=== PATIENT | male | born 1935 | race Caucasian/White ===

== ENCOUNTER 2020-03-23 13:17 | Outpatient (RCR) | payer MEDICARE, OTHER, SELFPAY ==
[2015-06-06 07:22] VITALS: BMI 28.8
== END 2020-03-23 23:59 ==
LOC: IMMUN 13:17
PROVIDERS: PCP Internal Medicine; Referring Provider Family Medicine; Visit Provider Family Medicine
DX: Z23 Encounter for immunization (principal)
CPT/HCPCS: 0011A; 0012A

== ENCOUNTER 2020-10-06 23:47 | Emergency (ER) | payer MEDICARE, OTHER, SELFPAY ==
[2020-10-06 23:48] VITALS: BP 153/79; PULSE 84; RESP 16; TEMP 36.9; O2SAT 96; BMI 27.4
--- NOTE | 2020-10-07 00:07 | CT_ITS ---
STUDY: CT ABDOMEN AND PELVIS WITHOUT CONTRAST REASON FOR EXAM: Male, 84 years old. Pain right flank RADIATION DOSAGE (If Supplied By Facility): CTDIvol = ( 8.61 ) mGy, DLP = ( 447.50 ) mGycm TECHNIQUE: Transaxial images were obtained from the dome of the diaphragm to the symphysis pubis without oral contrast, and without intravenous contrast. Sagittal and coronal images were reconstructed. Individualized dose optimization techniques were used for this CT. COMPARISON: None. FINDINGS: The visualized lung bases are unremarkable. The visualized portions of the heart are within normal limits. Normal liver. Normal gallbladder and extrahepatic biliary system. Normal spleen. Normal pancreas. Normal bilateral adrenal glands. Mild bilateral perinephric stranding. There are several low attenuation structures within the right kidney, largest seen within the right mid upper renal pole medially measuring approximately 1.5 cm with [place] units compatible with cysts. Otherwise normal otherwise normal right kidney. Normal left kidney. The stomach is decompressed otherwise unremarkable. No hiatal hernia. Normal small intestine. Unremarkable colon with nonspecific fecal debris. The appendix is visualized and appears normal. There is diffuse atherosclerotic calcification of the abdominal aorta, without a demonstrated aneurysm. Normal inferior vena cava. Normal retroperitoneum. Normal urinary bladder. Significant enlargement of the prostate gland with indentation over the posterior aspect of the urinary bladder wall measuring 6.0 x 7.0 x 6.3 cm. The bilateral fat-containing inguinal hernia of indeterminate clinical significance. There are diffuse degenerative changes of the visualized lumbar spine. Multifactorial, multilevel narrowing of the thecal sac consistent with severe spinal stenosis is slightly throughout the entire lumbar spine from L1 to L4-L5. CT/Abdomen/Pelvis without Cont IMPRESSION: No acute appendicitis or bowel obstruction. Right-sided renal cysts, otherwise normal bilateral kidneys with no hydronephrosis or intrarenal stone. Prostate enlargement. Electronically Signed: Latrice Barakat MD at 1:10 EDT , Service support ,
[2020-10-07 00:08] LABS: Mucous, Urine 0 SEEN /hpf (<or=2+); Squamous Epithelial Cells - UA 0 SEEN /hpf (0-5)
[2020-10-07 00:15] LABS: Color, Urine Red (Yellow); Glucose, Dipstick Normal (Normal); Ketone-Dipstick Negative (Negative); Leukocyte Esterase-Dipstick 25 /ul (Negative); Nitrite-Dipstick Negative (Negative); Occult Blood-Urine 250 /ul (Negative); Protein-Dipstick 100 mg/dl (Negative); Urine Bilirubin Dipstick Negative (Negative); Urine Clarity Clear (Clear); Urine Urobilinogen Normal (Normal); Urine pH 6.5 (5.0 - 8.0)
[2020-10-07 00:28] LABS: Absolute Lymphocyte Count 2.48 X10^3/uL (0.83-4.51); Absolute Neutrophil Count 4.7 X10^3/uL (2.0-7.7); Basophil# 0.04 X10^3/uL; Basophil% 0.5 % (0-1); Eosinophil# 0.26 X10^3/uL; Eosinophils% 3.2 % (0-5); Hematocrit 44.3 % (40-54); Lymphocyte # 2.48 X10^3/ul (0.83-4.51); Lymphocyte % 30.5 % (19-41); Mean Corp Hgb Conc 33.9 g/dL (32-36); Mean Corpuscular Hgb 31.1 pg (27.0-32.0); Mean Corpuscular Volume 91.9 fL (80-94); Mean Platelet Vol. 8.4 fl (6.2-12.0); Monocyte# 0.61 X10^3/uL; Monocyte% 7.5 % (0-10); NRBC Flagged by Analyzer 0 % (0-5); Neutrophil # 4.73 X10^3/uL (2.7-7.7); Neutrophil % 58.1 % (47-70); Platelet Count 315 K/mm3 (150-450); RBC Distribution Width CV 13.2 % (11.6-14.6); RBC Distribution Width SD 44.3 fl (35.1-43.9); Red Blood Count 4.82 M/mm3 (4.6-6.2); White Blood Count 8.1 K/mm3 (4.4-11.0)
[2020-10-07 00:51] LABS: ALB/GLOB Ratio 1.2 RATIO (0.9-2.4); AST(SGOT) 16 U/L (15-37); Alanine Aminotransfer ALT/SGPT 34 U/L (16-61); Albumin, Serum 4.1 g/dL (3.2-5.0); Alkaline Phosphatase 97 U/L (45-117); Anion Gap 6 (5-15); BUN 24 mg/dL (7-18); BUN/Creat Ratio 19.8 RATIO (10-20); Calcium,Total 9.7 mg/dL (8.5-10.1); Chloride 104 mmol/L (98-107); Creatinine, Serum 1.21 mg/dL (0.70-1.30); EST Glomerular Filtration Rate 61 mL/min (>60); Est Glom Filt Rate - Afr Amer 73 mL/min (>60); Estimated Creatinine Clearance 41.01 ml/min; Globulin 3.5 g/dL (2.2-4.2); Glucose 127 mg/dL (74-106); Potassium 4.2 mmol/L (3.5-5.1); Protein, Total 7.6 g/dL (6.4-8.2); Sodium Level 139 mmol/L (136-145)
[2020-10-07 00:59] LABS: Bacteria 3+ /hpf (None Seen); Red Blood Cells-Urine 50-100 SEEN /hpf (0-5); White Blood Cells 5-10 SEEN /hpf (0-5)
--- NOTE | 2020-10-07 01:58 | EX.ED.GUMALE ---
HPI History of Present Illness Chief Complaint: Complaint Informant: patient and spouse/S.O. Related History Enlarged Prostate: Yes Narrative Narrative: Patient is an 84-year-old male with history of BPH, hypertension and diabetes mellitus presenting with hematuria. Patient states that developed today. He notes he has some mild burning after he urinates and increased frequency of urination. Denies any associated testicular pain. He did have a mild intermittent episode of right flank pain but does not currently have any. He is not on any blood thinners or chronic anticoagulation. He does take 81 mg of aspirin daily. No new medications. States he does have a history of urinary retention and did have to have a Sequeira catheter once. Does not currently follow with a urologist but chart review shows he is on Flomax. [facility] Medical History Diabetes HTN (hypertension) Home Medications albuterol sulfate [Ventolin HFA] 1 - 2 puff INHALATION Q4H PRN PRN #1 inhaler 06/06/15 [Rx Last Taken Unknown] aspirin 81 mg PO DAILY@0800 06/06/15 [History Last Taken Unknown] famotidine 20 mg PO BID 06/06/15 [History Last Taken Unknown] latanoprost 1 drp EACH EYE QHS 06/06/15 [History Last Taken Unknown] lisinopril-hydrochlorothiazide [Zestoretic 10/12.5 Tablet] 1 tab PO DAILY 06/06/15 [History Last Taken Unknown] metformin 500 mg PO BIDCM 06/06/15 [History Last Taken Unknown] metoprolol tartrate 100 mg PO DAILY 06/06/15 [History Last Taken Unknown] multivitamin [Daily Multiple Vitamin] 2 ea PO DAILY 06/06/15 [History Last Taken Unknown] simvastatin 20 mg PO QHS 06/06/15 [History Last Taken Unknown] tamsulosin 0.4 mg PO DAILY 06/06/15 [History Last Taken Unknown] wheat dextrin [Benefiber] 1 ea PO DAILY 06/06/15 [History Last Taken Unknown] cephalexin 500 mg PO BID #14 cap 10/07/20 [Rx Last Taken Unknown] Allergy/AdvReac Type Severity Reaction Status Date / Time No Known Allergies Allergy Verified 10/06/20 23:50 Social History Smoking Status: Former smoker ROS ROS ED Constitutional Constitutional ED: Denies chills or fever(s) Eyes Eyes: Denies change in vision ENT ENT ED: Denies rhinorrhea or sore throat Cardiovascular Cardiovascular: Denies chest pain or palpitations Respiratory/Chest Respiratory/Chest: Denies cough or dyspnea Gastrointestinal Gastrointestinal: Reports abdominal pain; Denies diarrhea, nausea or vomiting Genitourinary Genitourinary ED: Reports dysuria, hematuria and urinary frequency Musculoskeletal Musculoskeletal: Denies arthralgias or myalgias Integumentary Denies rash Neurologic Neurologic: Denies headache(s) or weakness EXAM Physical Exam Const Vital Signs: 10/06/20 23:48 10/07/20 02:48 Temperature 98.4 F Temperature Source Temporal Pulse Rate 84 Respiratory Rate 16 18 Blood Pressure 153/79 H Blood Pressure Mean 103 Pulse Ox 96 Oxygen Delivery Method Room Air Positive well nourished and well developed General Appearance ED: well developed; Negative for pallor HEENT normocephalic and atraumatic Eyes PERRL and EOMs intact bilaterally General Eye ED: Negative for pale conjunctiva Neck supple and no JVD Resp normal respiratory effort and clear to auscultation bilaterally Cardio regular rate, regular rhythm and no murmurs GI non-tender and non-distended Auscultation: normoactive bowel sounds Palpation: soft Back/Spine no CVA tenderness Lumbar Spine / Lower Back: Negative for lumbar spinal tenderness Extremity normal to inspection Neuro oriented x3, moves all extremities and no focal motor deficits Sensorium / Orientation: alert Motor Exam: Negative for general weakness Psych mental status grossly normal Skin General Skin Exam: Negative for pallor Lesions: no lesions Rashes: no rashes MDM MDM MDM Narrative Medical decision making narrative: Patient evaluated for hematuria. He appears nontoxic in no acute distress. He does use the restroom multiple times in the emergency room. Postvoid bladder ultrasound shows about 200 mL of urine. Urinalysis shows blood as well as white blood cells and 3+ bacteria. I am concerned patient has urinary retention that likely predispose him to UTI and now has hematuria. His creatinine is 1.21 which appears to be his baseline from 2016. His white blood cell count, hemoglobin and platelets are normal. CT of the abdomen and pelvis obtained as he did have episode of right flank pain to make sure is not a kidney stone. Patient significant prostate enlargement and a right renal cyst but no finding of hydronephrosis. patient started on Keflex and given referral to follow-up with urology with Dr. Christina. He is given counseling on how to use to maintain an indwelling Sequeira catheter. Patient and are agreeable with this plan of care. Patient is over 400 cc of urine after Sequeira catheter placement. Lab Data Attestation: I reviewed the patient's lab results. Labs: Laboratory Results - last 24 hr 10/06/20 10/07/20 10/07/20 23:55 00:10 00:10 WBC 8.1 RBC 4.82 Hgb 15.0 Hct 44.3 MCV 91.9 MCH 31.1 MCHC 33.9 RDW Std Deviation 44.3 H RDW Coeff of Anaya 13.2 Plt Count 315 MPV 8.4 Immature Gran % (Auto) 0.200 Neut % (Auto) 58.1 Lymph % (Auto) 30.5 [place] % (Auto) 7.5 Eos % (Auto) 3.2 Baso % (Auto) 0.5 Absolute Neuts (auto) 4.7 Absolute Lymphs (auto) 2.48 Nucleated RBC % 0 Sodium 139 Potassium 4.2 Chloride 104 Carbon Dioxide 29.0 Anion Gap 6 BUN 24 H Creatinine 1.21 Estim Creat Clear Calc 41.01 Est GFR (MDRD) Af Amer 73 Est GFR (MDRD) Non-Af 61 BUN/Creatinine Ratio 19.8 Glucose 127 H Calcium 9.7 Total Bilirubin 0.70 AST 16 ALT 34 Alkaline Phosphatase 97 Total Protein 7.6 Albumin 4.1 Globulin 3.5 Albumin/Globulin Ratio 1.2 Urine Color Red Urine Clarity Clear Urine pH 6.5 Ur Specific [place] 1.010 Urine Protein 100 H Urine Glucose (UA) Normal Urine Ketones Negative Urine Occult Blood 250 H Urine Nitrite Negative Urine Bilirubin Negative Urine Urobilinogen Normal Ur Leukocyte Esterase 25 H Urine RBC 50-100 SEEN Urine WBC 5-10 SEEN Ur Squamous Epith Cells 0 SEEN Urine Bacteria 3+ Urine Mucus 0 SEEN Radiography Diagnostic Testing: Radiology Impression Abdomen/Pelvis CT 10/07/20 00:07 IMPRESSION: No acute appendicitis or bowel obstruction. Right-sided renal cysts, otherwise normal bilateral kidneys with no hydronephrosis or intrarenal stone. Prostate enlargement. Electronically Signed: Latrice Barakat MD at 1:10 EDT , Service support , Discharge Plan Triage Chief Complaint: Complaint ED Provider: Elise Love Dx/Rx/DC Orders Clinical Impression: Acute UTI, Hematuria, Acute urinary retention Instructions: ED Sequeira Catheter, Care, ED Hematuria, ED Urinary Retention, Male, ED Urinary Tract Infections in Men Prescriptions: New cephalexin 500 mg capsule 500 mg PO BID Qty: 14 RF: 0 No Action multivitamin [Daily Multiple] 1 EACH tablet 2 ea PO DAILY RF: 0 latanoprost 1 DROP bottle 1 drp Each Eye QHS RF: 0 metformin 500 MG tablet 500 mg PO BIDCM RF: 0 metoprolol tartrate 100 MG tablet 100 mg PO DAILY RF: 0 famotidine 20 MG tablet 20 mg PO BID RF: 0 tamsulosin 0.4 MG capsule 0.4 mg PO DAILY RF: 0 simvastatin 20 MG tablet 20 mg PO QHS RF: 0 aspirin 81 MG tablet,chewable 81 mg PO DAILY@0800 RF: 0 lisinopril-hydrochlorothiazide [Zestoretic] 1 TABLET tablet 1 tab PO DAILY RF: 0 wheat dextrin [Benefiber Clear SF (dextrin)] 1 EACH powder in packet 1 ea PO DAILY RF: 0 albuterol sulfate [Ventolin HFA] 1 INHALER inhaler 1 - 2 puff inhalation Q4H PRN PRN (Reason: Wheezing) Qty: 1 RF: 0 Primary Care Provider: Hiram Rand Referrals: Frantz Christina MD [STAFF PHYSICIAN] - 3-5 Days (for sequeira catheter check and removal ) Hiram Rand MD [Primary Care Provider] - Disposition Disposition: Home, Self Care Discharge Date/Time: 10/07/20 02:48
[2020-10-07] MEDS: Cephalexin 250 MG Capsule 500 MG PO (02:10)
[2020-10-07 02:48] VITALS: RESP 18
== END 2020-10-07 02:48 | disposition home or self-care (01) ==
PROVIDERS: Emergency Provider Emergency Medicine; PCP Internal Medicine
DX: N40.1 Benign prostatic hyperplasia with lower urinary tract symptoms (principal); N39.0 Urinary tract infection, site not specified; R31.9 Hematuria, unspecified; E11.9 Type 2 diabetes mellitus without complications; I10 Essential (primary) hypertension; Z79.84 Long term (current) use of oral hypoglycemic drugs; Z79.899 Other long term (current) drug therapy; Z87.891 Personal history of nicotine dependence
CPT/HCPCS: 51702; 74176; 80053; 81001; 85025; 87086; 87088; 99284; A4216

== ENCOUNTER → 2022-05-26 | Outpatient (CLI) | payer MEDICARE, OTHER, SELFPAY ==
[2022-05-26 15:51] LABS: PSA,Total- Diagnostic 4.57 ng/mL (0.0-4.0)
== END | disposition home or self-care (01) ==
LOC: LAB 14:37
PROVIDERS: PCP Internal Medicine; Referring Provider Urology; Visit Provider Urology
DX: N40.1 Benign prostatic hyperplasia with lower urinary tract symptoms (principal)
CPT/HCPCS: 36415; 84153

== ENCOUNTER 2022-07-17 12:17 | Emergency (ER) | payer MEDICARE, OTHER, SELFPAY ==
[2022-07-17] VITALS (7 sets, daily range): BP systolic 118–135; BP diastolic 59–75; PULSE 62–80; RESP 18–21; TEMP 36.2; O2SAT 94–100; BMI 28.1
--- NOTE | 2022-07-17 12:49 | EKG12_ITS ---
Test Reason : CP Blood Pressure : / mmHG Vent. Rate : 065 BPM Atrial Rate : 065 BPM P-R Int : 154 ms QRS Dur : 128 ms QT Int : 432 ms P-R-T Axes : 059 087 017 degrees QTc Int : 449 ms Normal sinus rhythm with sinus arrhythmia Right bundle branch block Abnormal ECG Confirmed by CAREY CASTELLON, RENAN ([id number]), editor producer CAIO FUNEZ ([id number]) on 07/18/2022 8:10:53 AM Referred By: BB Confirmed By:RENAN PATINO MD
--- NOTE | 2022-07-17 12:50 | RAD_ITS ---
STUDY: X-RAY CHEST REASON FOR EXAM: Male, 86 years old. Chest pain. TECHNIQUE: PA and lateral views of the chest. COMPARISON: Comparison is made with prior study June 06, 2015. FINDINGS: EKG electrodes are seen. Hyperinflation. The lungs are clear. There is no demonstrated pleural abnormality. Normal size heart. Normal mediastinum and sunshine. Normal visualized pulmonary arteries. There is atherosclerotic calcification of the aortic arch with tortuosity. There are diffuse degenerative changes of the visualized thoracic spine. Normal visualized ribs, clavicles, and shoulders. There is no demonstrated abnormality of the visualized soft tissue structures of the upper abdomen. RAD/Chest PA and Lateral IMPRESSION: Hyperinflation. The lungs are clear. Electronically Signed: Roge Núñez MD at 13:42 EDT ,
--- NOTE | 2022-07-17 12:50 | ED.VIS.CHEST ---
HPI History of Present Illness Chief Complaint: Chest Pain Informant: patient Narrative Narrative: Patient presents around noon for pain in his left chest near his axilla and around the shoulder blade that started around midnight; he states he went to bed last night without any symptoms and he woke up around midnight to use the bathroom, he went to the bathroom without any issues or event, and as he was getting back into bed he noticed this discomfort. He went back to sleep he woke up it was still there and has had it all morning so he presents because this is unusual for him. No history of heart problems. Denies any associated dyspnea, palpitations, near-syncope/syncope, nausea, vomiting, or pleuritic discomfort. No radiating jaw, arm, neck pain. He ate a sandwich this morning and took 2 baby aspirin without any significant changes in his discomfort. Does not seem exertional. [facility] Medical History Diabetes HTN (hypertension) Home Medications albuterol sulfate 90 mcg/actuation aerosol inhaler (Ventolin HFA) 1 - 2 puff inhalation Q4H PRN PRN Wheezing ##1 06/06/15 [Rx Last Taken Unknown] aspirin 81 mg chewable tablet 81 mg PO DAILY@0800 06/06/15 [History Last Taken Unknown] famotidine 20 mg tablet 20 mg PO BID 06/06/15 [History Last Taken Unknown] latanoprost 0.005 % eye drops 1 drp QHS 06/06/15 [History Last Taken Unknown] lisinopril 10 mg-hydrochlorothiazide 12.5 mg tablet (Zestoretic) 1 tab PO DAILY 06/06/15 [History Last Taken Unknown] metformin 500 mg tablet 500 mg PO BIDCM 06/06/15 [History Last Taken Unknown] metoprolol tartrate 100 mg tablet 100 mg PO DAILY 06/06/15 [History Last Taken Unknown] multivitamin (Daily Multiple tablet) 2 ea PO DAILY 06/06/15 [History Last Taken Unknown] simvastatin 20 mg tablet 20 mg PO QHS 06/06/15 [History Last Taken Unknown] tamsulosin 0.4 mg capsule 0.4 mg PO DAILY 06/06/15 [History Last Taken Unknown] wheat dextrin 3 gram/3.5 gram oral powder packet (Benefiber Clear Sugar Free(dextrin)) 1 ea PO DAILY 06/06/15 [History Last Taken Unknown] cephalexin 500 mg capsule 500 mg PO BID #14 caps 10/07/20 [Rx Last Taken Unknown] Allergy/AdvReac Type Severity Reaction Status Date / Time No Known Allergies Allergy Verified 10/06/20 23:50 Social History (Updated 07/17/22 @ 13:00 by Nadine Hector) household members: spouse Smoking Status: Former smoker ROS ROS ED Constitutional Constitutional ED: Denies chills or fever(s) Eyes Eyes: Denies change in vision or diplopia ENT ENT ED: Denies rhinorrhea or sore throat Cardiovascular Cardiovascular: Reports chest pain; Denies leg edema, palpitations or radiating jaw, neck or arm pain Respiratory/Chest Respiratory/Chest: Denies cough or dyspnea Gastrointestinal Gastrointestinal: Denies abdominal pain, diarrhea, nausea or vomiting Genitourinary Genitourinary ED: Denies dysuria or hematuria Musculoskeletal Musculoskeletal: Reports back pain; Denies neck pain Integumentary Denies abscess or rash Neurologic Neurologic: Denies headache(s), paresthesias or weakness Psychiatric Psychiatric: Denies anxiety or suicidal thoughts EXAM Physical Exam Const Vital Signs: 07/17/22 12:17 07/17/22 12:56 07/17/22 12:56 Temperature 97.1 F L Temperature Source Temporal Pulse Rate 70 64 Respiratory Rate 18 21 H Respiratory Effort Normal Blood Pressure 135/75 H 121/73 H Blood Pressure Mean 95 89 Pulse Ox 100 Oxygen Delivery Method Room Air 07/17/22 13:02 07/17/22 13:17 07/17/22 14:00 Temperature Temperature Source Pulse Rate 62 63 Respiratory Rate 18 18 Respiratory Effort Blood Pressure 119/65 118/59 L Blood Pressure Mean 83 78 Pulse Ox 94 Oxygen Delivery Method Room Air 07/17/22 15:07 Temperature Temperature Source Pulse Rate 80 Respiratory Rate Respiratory Effort Blood Pressure 121/74 H Blood Pressure Mean 89 Pulse Ox Oxygen Delivery Method Positive well nourished and well developed General Appearance ED: well developed and NAD HEENT Reports moist mucous membranes normocephalic and atraumatic Eyes PERRL and EOMs intact bilaterally Neck full ROM and supple Chest Wall inspection of chest normal and palpation of chest normal Resp normal respiratory effort and clear to auscultation bilaterally Cardio regular rate, regular rhythm and no murmurs Rate: Negative for tachycardic GI non-tender and non-distended Auscultation: normoactive bowel sounds Palpation: soft Back/Spine no CVA tenderness General Back: other FROM Extremity normal to inspection General Extremety ED: Negative for edema, pulses abnormal or tenderness General Extremity: Negative for edema or pulses abnormal Neuro oriented x3, CN's II-XII intact bilaterally and no sensory deficits noted Sensorium / Orientation: awake and alert Motor Exam: strength 5/5 throughout Psych mental status grossly normal Skin no rashes or lesions noted and no wounds Heart Score History: Slightly/Non-Suspicious ECG: Nonspecific Repolarization Age: >/= 65 years Risk Factors: 1 or 2 Risk Factors Score: 4 MDM MDM MDM Narrative Medical decision making narrative: At the end of my evaluation, patient states that when I do this, it hurts more. He shows me that he is moving his chest/left shoulder in a certain way. The chest x-ray interested the cardiac work-up is all unremarkable, he has been having symptoms for longer than 8 hours with a troponin of 5, and an EKG showing a right bundle branch block that is unchanged compared with his old 1, essentially ruling out acute coronary syndrome at this time. He is comfortable and had no telemetry events and his vital signs are normal. On reexamination to discuss the test results with him, he and his state that they did some more discussing, and they remembered that yesterday he was carrying the battery-powered weedeater around his yard all day, then he lifted up a lot of objects, including a bunch of cardboard that he then took to a dumpster lifting the heavy lid, and trying to balance it while he pushed the cardboard into it. He is not used to doing these things, and he suspects maybe this is related to his pain, and I agree. Reassured and discharged home, we discussed reasons to follow-up and return. He is comfortable with that plan. Lab Data Attestation: I reviewed the patient's lab results. Labs: Laboratory Results - last 24 hr 07/17/22 07/17/22 12:30 12:30 WBC 6.2 RBC 4.96 Hgb 15.5 Hct 45.6 MCV 91.9 MCH 31.3 MCHC 34.0 RDW Std Deviation 45.3 H RDW Coeff of Anaya 13.5 Plt Count 254 MPV 8.8 Immature Gran % (Auto) 0.200 Neut % (Auto) 58.0 Lymph % (Auto) 31.3 [place] % (Auto) 5.8 Eos % (Auto) 4.2 Baso % (Auto) 0.5 Absolute Neuts (auto) 3.6 Absolute Lymphs (auto) 1.94 Nucleated RBC % 0 Sodium 139 Potassium 3.9 Chloride 105 Carbon Dioxide 28.0 Anion Gap 6 BUN 17 Creatinine 1.08 Estim Creat Clear Calc 44.31 Est GFR (MDRD) Af Amer 83 Est GFR (MDRD) Non-Af 69 BUN/Creatinine Ratio 15.7 Glucose 175 H Calcium 9.7 Troponin I High Sens 5 Radiography Chest X-Ray - ED: 2 View, Read by ED Physician, No Acute Disease and Chronic Changes Diagnostic Testing: Clinical Impression(s) from Imaging Studies Chest X-Ray 07/17/22 12:50 IMPRESSION: Hyperinflation. The lungs are clear. Electronically Signed: Roge Núñez MD at 13:42 EDT , Rhythm Strip Rhythm Strip: Sinus Rhythm Rate: 65 Ectopy: None EKG Initial EKG: Attestation: I personally reviewed and interpreted this EKG as follows: Interpretation: Sinus Rhythm, No Acute Injury Pattern and RBBB Prior EKG tracings: available for review Prior: Unchanged Discharge Plan Triage Chief Complaint: Chest Pain ED Provider: Curtis Saucedo Dx/Rx/DC Orders Clinical Impression: Left-sided chest wall pain Instructions: ED Chest Pain, Noncardiac Prescriptions: No Action multivitamin [Daily Multiple] 1 EACH tablet 2 ea PO DAILY latanoprost 1 DROP bottle 1 drp Each Eye QHS metformin 500 MG tablet 500 mg PO BIDCM metoprolol tartrate 100 MG tablet 100 mg PO DAILY famotidine 20 MG tablet 20 mg PO BID tamsulosin 0.4 MG capsule 0.4 mg PO DAILY simvastatin 20 MG tablet 20 mg PO QHS aspirin 81 MG tablet,chewable 81 mg PO DAILY@0800 lisinopril-hydrochlorothiazide [Zestoretic] 1 TABLET tablet 1 tab PO DAILY wheat dextrin [Benefiber Clear SF (dextrin)] 1 EACH powder in packet 1 ea PO DAILY albuterol sulfate [Ventolin HFA] 1 INHALER inhaler 1 - 2 puff inhalation Q4H PRN PRN (Reason: Wheezing) Qty: 1 0RF cephalexin 500 mg capsule 500 mg PO BID Qty: 14 0RF Primary Care Provider: Hiram Rand Referrals: Hiram Rand MD [Primary Care Provider] - 1 Week if not improving Disposition Disposition: Home, Self Care
[2022-07-17 13:13] LABS: Absolute Lymphocyte Count 1.94 X10^3/uL (0.83-4.51); Absolute Neutrophil Count 3.6 X10^3/uL (2.0-7.7); Basophil# 0.03 X10^3/uL; Basophil% 0.5 % (0-1); Eosinophil# 0.26 X10^3/uL; Eosinophils% 4.2 % (0-5); Hematocrit 45.6 % (40-54); Hemoglobin 15.5 g/dL (13.0-16.5); Lymphocyte # 1.94 X10^3/ul (0.83-4.51); Lymphocyte % 31.3 % (19-41); Mean Corpuscular Hgb 31.3 pg (27.0-32.0); Mean Corpuscular Volume 91.9 fL (80-94); Mean Platelet Vol. 8.8 fl (6.2-12.0); Monocyte# 0.36 X10^3/uL; Monocyte% 5.8 % (0-10); NRBC Flagged by Analyzer 0 % (0-5); Platelet Count 254 K/mm3 (150-450); RBC Distribution Width CV 13.5 % (11.6-14.6); RBC Distribution Width SD 45.3 fl (35.1-43.9); Red Blood Count 4.96 M/mm3 (4.6-6.2); White Blood Count 6.2 K/mm3 (4.4-11.0)
[2022-07-17 13:31] LABS: Anion Gap 6 (5-15); BUN 17 mg/dL (7-18); BUN/Creat Ratio 15.7 RATIO (10-20); Calcium,Total 9.7 mg/dL (8.5-10.1); Chloride 105 mmol/L (98-107); Creatinine, Serum 1.08 mg/dL (0.70-1.30); EST Glomerular Filtration Rate 69 mL/min (>60); Est Glom Filt Rate - Afr Amer 83 mL/min (>60); Estimated Creatinine Clearance 44.31 ml/min; Glucose 175 mg/dL (74-106); Potassium 3.9 mmol/L (3.5-5.1); Sodium Level 139 mmol/L (136-145); Troponin-I HS 5 pg/mL (3.0-78.0)
== END 2022-07-17 15:34 | disposition home or self-care (01) ==
PROVIDERS: Emergency Provider Emergency Medicine; PCP Internal Medicine; Visit Provider Emergency Medicine
DX: R07.89 Other chest pain (principal); E11.9 Type 2 diabetes mellitus without complications; I45.10 Unspecified right bundle-branch block; I10 Essential (primary) hypertension; Z87.891 Personal history of nicotine dependence
CPT/HCPCS: 71046; 80048; 84484; 85025; 93005; 99284; A4216

== ENCOUNTER 2024-02-17 09:32 | Emergency (ER) | payer MEDICARE, OTHER, SELFPAY ==
[2024-02-17 09:33] VITALS: BP 153/75; PULSE 82; RESP 20; TEMP 36.7; O2SAT 97; BMI 29.8
--- NOTE | 2024-02-17 09:40 | EKG12_ITS ---
Test Reason : Blood Pressure : */* mmHG Vent. Rate : 69 BPM Atrial Rate : 69 BPM P-R Int : 162 ms QRS Dur : 126 ms QT Int : 430 ms P-R-T Axes : 60 90 8 degrees QTcB Int : 460 ms Normal sinus rhythm Right bundle branch block Abnormal ECG Confirmed by Mack Rasmussen ([id number]), editorial specialist CAIO FUNEZ ([id number]) on 02/18/2024 10:17:38 AM Referred By: SIMON Confirmed By: Mack Rasmussen
--- NOTE | 2024-02-17 09:40 | RAD_ITS ---
HISTORY: chest pain. TECHNIQUE: XR Chest 1 View. COMPARISON: 07/17/2022. FINDINGS: CARDIOMEDIASTINAL BORDERS: Cardiac silhouette upper limits of normal in size. Mediastinal contour unremarkable with calcification of the aortic knob. LUNGS: Small scar or nodule in the left midlung again seen. Mild linear left basilar opacity. PLEURA: No pleural effusion or pneumothorax seen. OSSEOUS STRUCTURES: Degenerative change. RAD/Chest 1 View (Portable) IMPRESSION: Mild left basilar opacity, likely atelectasis. Stable small scar or nodule in the left midlung. Electronically Signed: Anita Jarquin MD at 10:05 EST ,
--- NOTE | 2024-02-17 09:56 | EDS_ITS ---
HPI History of Present Illness Chief Complaint: Chest Pain Informant: patient Onset/Context/Timing Onset: Today Timing: Continuous Quality: Positive for Dull Location: Substernal Current Severity: Mild Maximum Severity: Mild Worsened By: Nothing Relieved By: Nothing Associated Symptoms: Negative for Nausea, Vomiting, Diaphoresis, Dyspnea, Cough, Fever, Lightheadedness, Acid Reflux or Palpitations Narrative Narrative: 88-year-old male history of diabetes states he awoke this morning around 6 AM with chest discomfort. Initially is left-sided now is more midsternal. Denies any radiation to his neck back or jaw. No radiation to his arm. No prior history of chest pain or cardiac disease. Said he did have a heart cath less than 10 years ago he believes at the [facility] incident was okay. He denies any recent exertional chest pain or exertional shortness of breath. No history of DVT or PE or risk factors. No leg pain or swelling. No hemoptysis. Says he actually shoveled snow on his steps the other day and then used his plow to pile the rest of his driveway. He denies any recent cough or fever. No leg pain or swelling. Prior Similar Symptoms: No, With Prior IL, With Prior Angina and With Prior PE Recent Illness/Hospitalization: No CVD Risk Factors: Positive for Diabetes PE Risk Factors: Negative for Recent Travel/Surgery, Recent Immobilization, Prior DVT or PE, Cancer or OCP + Smoking + >/=35 TAD Risk Factors: Negative for Marfan's Syndrome [facility] Medical History Diabetes HTN (hypertension) Home Medications ?Medication ?Instructions ?Recorded ?Last Taken ?Type albuterol sulfate 90 mcg/actuation 1 - 2 puff inhalation Q4H PRN PRN 06/06/15 Unknown Rx aerosol inhaler (Ventolin HFA) Wheezing ##1 aspirin 81 mg chewable tablet 81 mg PO DAILY@0800 06/06/15 Unknown History famotidine 20 mg tablet 20 mg PO BID 06/06/15 Unknown History latanoprost 0.005 % eye drops 1 drp QHS 06/06/15 Unknown History lisinopril 10 1 tab PO DAILY 06/06/15 Unknown History mg-hydrochlorothiazide 12.5 mg tablet (Zestoretic) metformin 500 mg tablet 500 mg PO BIDCM 06/06/15 Unknown History metoprolol tartrate 100 mg tablet 100 mg PO DAILY 06/06/15 Unknown History multivitamin (Daily Multiple 2 ea PO DAILY 06/06/15 Unknown History tablet) simvastatin 20 mg tablet 20 mg PO QHS 06/06/15 Unknown History tamsulosin 0.4 mg capsule 0.4 mg PO DAILY 06/06/15 Unknown History wheat dextrin 3 gram/3.5 gram oral 1 ea PO DAILY 06/06/15 Unknown History powder packet (Benefiber Clear Sugar Free(dextrin)) cephalexin 500 mg capsule 500 mg PO BID #14 caps 10/07/20 Unknown Rx Allergy/AdvReac Type Severity Reaction Status Date / Time No Known Allergies Allergy Verified 02/17/24 09:33 Social History household members: spouse Smoking Status: Former smoker ROS ROS ED ROS Narrative Denies recent illness. Constitutional Constitutional ED: Denies chills or fever(s) Eyes Eyes: Reports none ENT ENT ED: Denies ear pain Cardiovascular Cardiovascular: Reports chest pain Respiratory/Chest Respiratory/Chest: Denies cough or dyspnea Gastrointestinal Gastrointestinal: Denies abdominal pain Genitourinary Genitourinary ED: Denies dysuria or hematuria Musculoskeletal Musculoskeletal: Denies arthralgias or back pain Integumentary Denies abscess or Abrasions Neurologic Neurologic: Denies headache(s) Psychiatric Psychiatric: Denies anxiety or depression Endocrine Endocrinology: Denies cold intolerance Hematologic/Lymphatic Hematologic/Lymphatic: Denies easy bleeding Allergic/Immunologic Allergic/Immunologic ED: Denies mouth swelling EXAM Physical Exam Narrative Exam Narrative: Well-appearing 88-year-old male. Vital signs are stable afebrile. Pulse ox 97% on room air no signs of hypoxia. H EENT exam unremarkable. Pupils round reactive light. M moist mucous membranes. Neck nontender no JVD. Lungs clear to auscultation bilaterally. Heart regular rate and rhythm rate about 80 no murmur. Chest wall and ribs there is no reproducible pain. No crepitance or subcu air. Abdomen soft and nontender. Back nontender. Moving all 4 extremities. 5 out of 5 fig caprifier strength. Dorsi plantarflexion intact. Equal symmetrical radial pulses. Calves are nontender without edema or cords. Back is nontender. Neurologically is awake and alert. Answering questions following commands. No focal motor deficits. Const Vital Signs: 02/17/24 09:33 02/17/24 09:33 02/17/24 09:40 Temperature 98.1 F Temperature Source Oral Pulse Rate 82 Respiratory Rate 20 H Respiratory Effort Normal Non-Labored Blood Pressure 153/75 H Blood Pressure Mean 101 Pulse Ox 97 Oxygen Delivery Method Room Air Room Air 02/17/24 10:33 02/17/24 11:00 02/17/24 12:00 Temperature Temperature Source Pulse Rate 74 72 68 Respiratory Rate 19 H 22 H 18 Respiratory Effort Blood Pressure 136/71 H 120/69 123/99 H Blood Pressure Mean 92 86 107 Pulse Ox 97 96 99 Oxygen Delivery Method Room Air Room Air 02/17/24 13:00 Temperature Temperature Source Pulse Rate 71 Respiratory Rate 18 Respiratory Effort Blood Pressure 126/84 H Blood Pressure Mean 98 Pulse Ox 96 Oxygen Delivery Method Room Air Positive well nourished and well developed; Negative for cachectic, contractures or unkempt General Appearance ED: well developed and NAD; Negative for unkempt, cachectic, contractures or pallor Nutritional Appearance: Negative for cachectic HEENT Reports moist mucous membranes normocephalic and atraumatic; Negative for trauma or tenderness Eyes PERRL and EOMs intact bilaterally General Eye ED: Negative for pale conjunctiva or scleral icterus Neck no lymphadenopathy, supple and no JVD Chest Wall inspection of chest normal and palpation of chest normal Chest: Negative for tenderness Resp normal respiratory effort and clear to auscultation bilaterally Effort and Inspection: Negative for respiratory distress Auscultation: Negative for rales, rhonchi, wheezes or diminished lung sounds Cardio regular rate, regular rhythm, S1 normal heart sound, S2 normal heart sound and no murmurs Peripheral Pulses: pulses 2+ throughout GI normal to inspection, nondistended, normoactive bowel sounds, soft to palpation, non-tender, non-distended and no masses Back/Spine no CVA tenderness and no thoracic nor lumbar tenderness General Back: Negative for CVA tenderness Cervical Spine: Negative for cervical spine tenderness Extremity normal to inspection General Extremety ED: Negative for edema, pulses abnormal or tenderness General Extremity: Negative for edema or pulses abnormal Neuro oriented x3 and CN's II-XII intact bilaterally Sensorium / Orientation: awake, alert, oriented to person and oriented to place; Negative for confused or lethargic Motor Exam: strength 5/5 throughout Psych mental status grossly normal Appearance: Negative for unkempt Mood & Affect: Negative for depressed, anxious or tearful Skin no rashes or lesions noted and no wounds General Skin Exam: Negative for jaundice or pallor Rashes: No rashes noted Trauma: Negative for abrasion or laceration Heart Score History: Moderately Suspicious ECG: Normal Age: >/= 65 years Risk Factors: 1 or 2 Risk Factors Score: 4 MDM MDM MDM Narrative Medical decision making narrative: 88-year-old male with nonexertional chest pain this morning. Currently is not reproducible. No cardiac history. But given his age, diabetes etc. he does have risk factors. Undergo a cardiac workup. Repeat exam patient is doing well at 1:38 PM. Symptoms have resolved. He is having no chest pain. Went over his test results. Given has not had recent exertional chest pain or exertional dyspnea. And he has had 2 troponins that are both negative. He had our card with him being discharged home with outpatient follow-up. Primary care physicians on page for outpatient follow. History & Record Review Discussion w/independent historian: Patient Additional record(s) reviewed:: Prior inpatient record, Prior outpatient record, Prior ED visit and Prior labs Lab Data Attestation: I reviewed the patient's lab results. Lab results narrative: CBC white count 12.3. H&H 14 and 40. Platelets 219. Electrolytes show a gap of 6. BUN of 20 creatinine of 1. Glucose 131. Initial troponin 5. 2-hour troponin less than 3. Chest x-ray chronic changes. Labs: Laboratory Results - last 24 hr 02/17/24 02/17/24 09:37 11:53 WBC 12.3 H RBC 4.62 Hgb 14.3 Hct 40.9 MCV 88.5 MCH 31.0 MCHC 35.0 RDW Std Deviation 43.8 RDW Coeff of Anaya 13.5 Plt Count 219 MPV 8.4 Immature Gran % (Auto) 0.300 Neut % (Auto) 82.0 H Lymph % (Auto) 10.0 L Marion % (Auto) 5.9 Eos % (Auto) 1.5 Baso % (Auto) 0.3 Absolute Neuts (auto) 10.0 H Absolute Lymphs (auto) 1.23 Nucleated RBC % 0 Sodium 139 Potassium 3.8 Chloride 102 Carbon Dioxide 31.0 Anion Gap 6 BUN 20 H Creatinine 1.06 Estim Creat Clear Calc 49.06 Est GFR (MDRD) Af Amer 85 Est GFR (MDRD) Non-Af 70 BUN/Creatinine Ratio 18.9 Glucose 131 H Calcium 9.7 Troponin I High Sens 5 < 3 L Radiography Chest X-Ray - ED: 1 View, Read by ED Physician, Normal, Heart, Lungs, Mediastinum, Bony Structures, No Acute Disease and Chronic Changes Diagnostic Testing: Clinical Impression(s) from Imaging Studies Chest X-Ray 02/17/24 09:40 IMPRESSION: Mild left basilar opacity, likely atelectasis. Stable small scar or nodule in the left midlung. Electronically Signed: Anita Jarquin MD at 10:05 EST Reading Location ID and State: [facility] / [place] Tel , Service support , Chest x-ray, portable, single view, interpreted by myself shows normal cardiac silhouette. Normal mediastinum. Normal lung desouza. Chronic changes. No acute process. No pneumonia. No pneumothorax. No effusion. Rhythm Strip Rhythm Strip: Sinus Rhythm Rate: 69 Ectopy: None EKG Initial EKG: Attestation: I personally reviewed and interpreted this EKG as follows: Interpretation: Sinus Rhythm and No Acute Injury Pattern Comments: Normal sinus rhythm rate of 69 no acute signs of IL or ischemia. Right bundle branch block. Discharge Plan Triage Chief Complaint: Chest Pain ED Provider: Maynor Urias Dx/Rx/DC Orders Clinical Impression: Chest pain, History of diabetes mellitus Instructions: ED Chest Pain, Uncertain Cause Prescriptions: No Action multivitamin [Daily Multiple] 1 EACH tablet 2 ea PO DAILY latanoprost 1 DROP bottle 1 drp Each Eye QHS metformin 500 MG tablet 500 mg PO BIDCM metoprolol tartrate 100 MG tablet 100 mg PO DAILY famotidine 20 MG tablet 20 mg PO BID tamsulosin 0.4 MG capsule 0.4 mg PO DAILY simvastatin 20 MG tablet 20 mg PO QHS aspirin 81 MG tablet,chewable 81 mg PO DAILY@0800 lisinopril-hydrochlorothiazide [Zestoretic] 1 TABLET tablet 1 tab PO DAILY wheat dextrin [Benefiber Clear SF (dextrin)] 1 EACH powder in packet 1 ea PO DAILY albuterol sulfate [Ventolin HFA] 1 INHALER inhaler 1 - 2 puff inhalation Q4H PRN PRN (Reason: Wheezing) Qty: 1 0RF cephalexin 500 mg capsule 500 mg PO BID Qty: 14 0RF Primary Care Provider: Hiram Rand Referrals: Hiram Rand MD [Primary Care Provider] - As soon as possible Activity Restrictions/Additional Instructions: Your tests were good. There is no signs of heart attack. If you have recurrent chest pain or exertional chest pain or shortness of breath return. Follow-up with your doctor for further evaluation. They may want to consider an outpatient stress test. Print Language: Greek Disposition Disposition: Home, Self Care
[2024-02-17 10:18] LABS: Absolute Lymphocyte Count 1.23 X10^3/uL (0.83-4.51); Basophil# 0.04 X10^3/uL; Basophil% 0.3 % (0-1); Eosinophil# 0.18 X10^3/uL; Eosinophils% 1.5 % (0-5); Hematocrit 40.9 % (40-54); Hemoglobin 14.3 g/dL (13.0-16.5); Lymphocyte # 1.23 X10^3/ul (0.83-4.51); Mean Corpuscular Volume 88.5 fL (80-94); Mean Platelet Vol. 8.4 fl (6.2-12.0); Monocyte# 0.72 X10^3/uL; Monocyte% 5.9 % (0-10); NRBC Flagged by Analyzer 0 % (0-5); Neutrophil # 10.04 X10^3/uL (2.7-7.7); Platelet Count 219 K/mm3 (150-450); RBC Distribution Width CV 13.5 % (11.6-14.6); RBC Distribution Width SD 43.8 fl (35.1-43.9); Red Blood Count 4.62 M/mm3 (4.6-6.2); White Blood Count 12.3 K/mm3 (4.4-11.0)
[2024-02-17] MEDS: Aspirin 81 MG TAB.CHEW 324 MG PO (10:19)
[2024-02-17 10:33] VITALS: BP 136/71; PULSE 74; RESP 19; O2SAT 97
[2024-02-17 11:00] VITALS: BP 120/69; PULSE 72; RESP 22; O2SAT 96
[2024-02-17 11:01] LABS: Anion Gap 6 (5-15); BUN 20 mg/dL (7-18); BUN/Creat Ratio 18.9 RATIO (10-20); Calcium,Total 9.7 mg/dL (8.5-10.1); Chloride 102 mmol/L (98-107); Creatinine, Serum 1.06 mg/dL (0.70-1.30); EST Glomerular Filtration Rate 70 mL/min (>60); Est Glom Filt Rate - Afr Amer 85 mL/min (>60); Estimated Creatinine Clearance 49.06 ml/min; Glucose 131 mg/dL (74-106); Potassium 3.8 mmol/L (3.5-5.1); Sodium Level 139 mmol/L (136-145); Troponin-I HS (w/2H Reflex) 5 pg/mL (3.0-78.0)
[2024-02-17 11:43] LABS: Reflex Troponin-HS? (from REC) Y
[2024-02-17 12:00] VITALS: BP 123/99; PULSE 68; RESP 18; O2SAT 99
[2024-02-17 12:26] LABS: Troponin-I HS < 3 pg/mL (3.0-78.0)
[2024-02-17 13:00] VITALS: BP 126/84; PULSE 71; RESP 18; O2SAT 96
[2024-02-17 13:36] VITALS: BP 126/84; PULSE 71; RESP 18; TEMP 36.8; O2SAT 96
== END 2024-02-17 13:46 | disposition home or self-care (01) ==
PROVIDERS: Emergency Provider Emergency Medicine; PCP Internal Medicine; Visit Provider Emergency Medicine
DX: R07.89 Other chest pain (principal); E11.9 Type 2 diabetes mellitus without complications; I10 Essential (primary) hypertension; I45.10 Unspecified right bundle-branch block; Z79.84 Long term (current) use of oral hypoglycemic drugs; Z79.899 Other long term (current) drug therapy; Z79.82 Long term (current) use of aspirin; Z87.891 Personal history of nicotine dependence
CPT/HCPCS: 71045; 80048; 84484; 85025; 93005; 99285; A4216